=== PATIENT | female | born 1995 | race Caucasian/White ===

== ENCOUNTER 2019-11-03 22:42 | Emergency (ER) | payer MEDICAID ==
[~2019-11-03] VITALS: Ht 149.9 cm; Wt 86.4 kg
[2019-11-03 22:43] VITALS: BP 138/76
[2019-11-03] MEDS ORDERED: IBUP-1022 (22:50)
[2019-11-03] MEDS ORDERED: MEDR150I10 (22:50)
[2019-11-03] MEDS ORDERED: PANT40TA3 (22:50)
[2019-11-03] MEDS ORDERED: RANI15TA (22:50)
[2019-11-03] MEDS ORDERED: CEPH500C (22:50)
[2019-11-03] MEDS ORDERED: ANUSOL HC CREAM 30GM TOP STA (23:41)
[2019-11-03] MEDS ORDERED: ANUS2.5C2 TOP (23:56)
[2019-11-03] MEDS ORDERED: ANUS25SU PR (23:56)
== END 2019-11-04 00:01 | disposition home or self-care (01) ==
LOC: M ED 22:42
DX: K64.8 Other hemorrhoids (principal)

== ENCOUNTER 2022-01-13 19:34 | Emergency (ER) | payer MEDICAID ==
[~2022-01-13] VITALS: Ht 147.3 cm; Wt 90.9 kg
[~2022-01-13 19:34] MED LIST: ANUS2.5C2 TOP; ANUS25SU PR; CEPH500C; IBUP-1022; MEDR150I10; PANT40TA29; RANI15TA
[2022-01-13] MEDS ORDERED: OMEP-341 PO (19:51)
[2022-01-13] MEDS ORDERED: ONDANSETRON 4MG ORAL DISINTEGRATING TAB PO ONE (22:35)
[2022-01-13 23:24] LABS: BASO # 0.1 10^3/uL (0.0-0.2); BASO % 0.5 % (0.0-1.0); EOS # 0.2 10^3/uL (0.0-0.5); HEMATOCRIT 43.3 % (36.0-47.0); HEMOGLOBIN 13.8 g/dl (12.0-15.5); MEAN CORPUSCULAR HEMOGLOBIN 28.5 pg (27.0-33.0); MEAN CORPUSCULAR HGB CONC 31.9 g/dl (32.0-36.5); MEAN CORPUSCULAR VOLUME 89.3 fl (80.0-96.0); MONO # 0.8 10^3/uL (0.0-0.8); MONO % 6.8 % (2.0-8.0); NEUTROPHILS # 6.6 10^3/uL (1.5-8.5); NEUTROPHILS % 56.4 % (36.0-66.0); PLATELET COUNT, AUTOMATED 347 10^3/uL (150-450); RED BLOOD COUNT 4.85 10^6/uL (4.00-5.40); WHITE BLOOD COUNT 11.7 10^3/uL (4.0-10.0)
[2022-01-13 23:49] LABS: HCG, SERUM QUALITATIVE NEGATIVE (NEGATIVE)
[2022-01-13 23:58] LABS: ALBUMIN 4.2 GM/DL (3.2-5.2); ALT/SGPT 29 U/L (12-78); BILIRUBIN,TOTAL 0.2 MG/DL (0.2-1.0); BLOOD UREA NITROGEN 9 MG/DL (7-18); CALCIUM LEVEL 9.9 MG/DL (8.5-10.1); CARBON DIOXIDE LEVEL 25 MEQ/L (21-32); CHLORIDE LEVEL 107 MEQ/L (98-107); CREATININE FOR GFR 0.78 MG/DL (0.55-1.30); GLOMERULAR FILTRATION RATE > 60.0 (>60); GLUCOSE, FASTING 85 MG/DL (70-100); POTASSIUM SERUM 3.8 MEQ/L (3.5-5.1); SODIUM LEVEL 139 MEQ/L (136-145); TOTAL PROTEIN 7.6 GM/DL (6.4-8.2)
[2022-01-14] MEDS ORDERED: ONDA4TAB6 PO
[2022-01-14 00:10] VITALS: BP 128/88
== END 2022-01-14 00:46 | disposition home or self-care (01) ==
LOC: M ED 19:34
DX: N93.8 Other specified abnormal uterine and vaginal bleeding (principal); K21.9 Gastro-esophageal reflux disease without esophagitis; Z79.3 Long term (current) use of hormonal contraceptives

== ENCOUNTER 2022-02-09 18:47 | Emergency (ER) | payer MEDICAID ==
[~2022-02-09] VITALS: Ht 152.4 cm; Wt 88.6 kg
[~2022-02-09 18:47] MED LIST changes: +OMEP-341 PO; +ONDA4TAB6 PO
[2022-02-09 20:20] LABS: RSV AMPLIFICATION NEGATIVE (NEGATIVE)
[2022-02-09 21:17] LABS: BASO % 0.4 % (0.0-1.0); EOS # 0.3 10^3/uL (0.0-0.5); EOS % 2.5 % (0.0-3.0); HEMATOCRIT 44.6 % (36.0-47.0); HEMOGLOBIN 14.1 g/dl (12.0-15.5); LYMPH # 3.7 10^3/uL (1.5-5.0); LYMPH % 34.3 % (24.0-44.0); MEAN CORPUSCULAR HEMOGLOBIN 28.5 pg (27.0-33.0); MEAN CORPUSCULAR HGB CONC 31.6 g/dl (32.0-36.5); MEAN CORPUSCULAR VOLUME 90.3 fl (80.0-96.0); MONO # 0.8 10^3/uL (0.0-0.8); MONO % 7.1 % (2.0-8.0); NEUTROPHILS % 55.6 % (36.0-66.0); PLATELET COUNT, AUTOMATED 350 10^3/uL (150-450); RED BLOOD COUNT 4.94 10^6/uL (4.00-5.40); WHITE BLOOD COUNT 10.8 10^3/uL (4.0-10.0)
[2022-02-09] MEDS ORDERED: ACETAMINOPHEN 500 MG TAB PO ONE (21:25)
[2022-02-09 21:34] LABS: ALBUMIN 3.9 GM/DL (3.2-5.2); ALT/SGPT 35 U/L (12-78); BILIRUBIN,DIRECT < 0.1 MG/DL (0.0-0.2); BILIRUBIN,TOTAL 0.1 MG/DL (0.2-1.0); LIPASE 100 U/L (73-393); TOTAL PROTEIN 7.3 GM/DL (6.4-8.2)
[2022-02-09 23:26] VITALS: BP 136/82
== END 2022-02-09 23:27 | disposition home or self-care (01) ==
LOC: M ED 18:47
DX: N21.0 Calculus in bladder (principal); R10.84 Generalized abdominal pain; R51.9 Headache, unspecified; Z79.899 Other long term (current) drug therapy

== ENCOUNTER 2022-02-12 20:42 | Emergency (ER) | payer MEDICAID ==
[~2022-02-12] VITALS: Ht 152.4 cm; Wt 88.2 kg
[2022-02-12 20:43] VITALS: BP 142/82
== END 2022-02-12 23:25 | disposition left against medical advice (07) ==
LOC: M ED 20:42
DX: Z53.21 Procedure and treatment not carried out due to patient leaving prior to being seen by health care provider (principal)

== ENCOUNTER → 2022-03-02 | Outpatient (REF) | payer MEDICAID | LOC: M LAB REF 19:31 | PROVIDERS: ATTEND Physician Assistant Medical | DX: R53.83 Other fatigue (principal); R50.9 Fever, unspecified; R05.9 Cough, unspecified; J02.9 Acute pharyngitis, unspecified ==

== ENCOUNTER → 2022-03-15 | Outpatient (REF) | payer MEDICAID ==
[2022-03-15 18:24] LABS: APPEARANCE, URINE MANUAL HAZY (CLEAR); BILIRUBIN, URINE MANUAL NEGATIVE (NEGATIVE); BLOOD URINE MANUAL POSITIVE (NEGATIVE); COLOR, URINE MANUAL YELLOW (YELLOW); GLUCOSE, URINE (UA) MANUAL NEGATIVE (NEGATIVE); KETONE, URINE MANUAL NEGATIVE (NEGATIVE); LEUKOCYTE ESTERASE, URINE MAN POSITIVE (NEGATIVE); NITRITE, URINE MANUAL NEGATIVE (NEGATIVE); PROTEIN, URINE MANUAL NEGATIVE (NEGATIVE); SPECIFIC GRAVITY,URINE MANUAL 1.025 (1.002-1.035); UROBILINOGEN, URINE MANUAL NORMAL (NORMAL)
[2022-03-15 18:42] LABS: AMORPHOUS SEDIMENT, URINE LARGE AMOUNT (NEGATIVE); BACTERIA, URINE SMALL AMOUNT; HYALINE CAST, URINE NONE SEEN /lpf (0-1); SQUAMOUS EPITHELIAL CELL URINE SMALL AMOUNT /hpf (SMALL AMT)
== END ==
LOC: M SMT 17:05
PROVIDERS: ATTEND Physician Assistant
DX: R31.9 Hematuria, unspecified (principal)

== ENCOUNTER 2022-09-09 13:43 | Emergency (ER) | payer MEDICAID ==
[~2022-09-09] VITALS: Ht 147.3 cm; Wt 89.9 kg
[2022-09-09] MEDS ORDERED: CETI-24 (14:04)
[2022-09-09] MEDS ORDERED: BENZONATATE 100MG CAPSULE PO ONE (17:55)
[2022-09-09] MEDS ORDERED: LIDOCAINE VISCOUS 2% SOLN 15ML UDC SS ONE (17:55)
[2022-09-09] MEDS ORDERED: ACETAMINOPHEN 500 MG TAB PO ONE (17:55)
[2022-09-09] MEDS ORDERED: BENZ200C70 PO (18:00)
[2022-09-09] MEDS ORDERED: LIDO15SO PO (18:00)
[2022-09-09] MEDS ORDERED: PROA1AER2 INH (18:00)
[2022-09-09 18:09] VITALS: BP 139/87
== END 2022-09-09 18:18 | disposition home or self-care (01) ==
LOC: M ED 13:43 → EDBD 13:43 → M ED 18:18
DX: R07.0 Pain in throat (principal); R05.9 Cough, unspecified; B34.8 Other viral infections of unspecified site; Z79.899 Other long term (current) drug therapy

== ENCOUNTER → 2022-10-15 | Outpatient (REF) | payer MEDICAID ==
[~2022-10-15] MED LIST changes: +BENZ200C70 PO; +CETI-24; +LIDO15SO PO; +PROA1AER2 INH
[2022-10-15 17:33] LABS: BASO # 0.1 10^3/uL (0.0-0.2); BASO % 0.7 % (0.0-1.0); EOS # 0.1 10^3/uL (0.0-0.5); EOS % 1.4 % (0.0-3.0); HEMATOCRIT 43.5 % (36.0-47.0); HEMOGLOBIN 13.8 g/dl (12.0-15.5); LYMPH # 2.9 10^3/uL (1.5-5.0); LYMPH % 37.4 % (24.0-44.0); MEAN CORPUSCULAR HEMOGLOBIN 28.1 pg (27.0-33.0); MEAN CORPUSCULAR HGB CONC 31.7 g/dl (32.0-36.5); MEAN CORPUSCULAR VOLUME 88.6 fl (80.0-96.0); MONO # 0.7 10^3/uL (0.0-0.8); MONO % 8.7 % (2.0-8.0); NEUTROPHILS % 51.7 % (36.0-66.0); PLATELET COUNT, AUTOMATED 329 10^3/uL (150-450); RED BLOOD COUNT 4.91 10^6/uL (4.00-5.40); WHITE BLOOD COUNT 7.7 10^3/uL (4.0-10.0)
[2022-10-15 18:00] LABS: LIPASE 35 U/L (12-53)
[2022-10-15 18:02] LABS: ALBUMIN 3.8 G/DL (3.2-5.2); ALKALINE PHOSPHATASE 85 U/L (46-116); ALT/SGPT 51 U/L (7.0-40); AST/SGOT 19 U/L (<34); BILIRUBIN,TOTAL 0.2 MG/DL (0.3-1.2); BLOOD UREA NITROGEN 11 MG/DL (9-23); CALCIUM LEVEL 9.4 MG/DL (8.5-10.1); CARBON DIOXIDE LEVEL 24 MMOL/L (20-31); CHLORIDE LEVEL 106 MMOL/L (98-107); CREATININE FOR GFR 0.67 MG/DL (0.55-1.30); GLOMERULAR FILTRATION RATE > 60.0 (>60); GLUCOSE, FASTING 81 MG/DL (60-100); POTASSIUM SERUM 3.9 MMOL/L (3.5-5.1); SODIUM LEVEL 140 MMOL/L (136-145); TOTAL PROTEIN 6.7 G/DL (5.7-8.2)
== END ==
LOC: M LAB REF 16:43
PROVIDERS: ATTEND Pediatrics
DX: R10.84 Generalized abdominal pain (principal)

== ENCOUNTER 2022-11-02 19:19 | Emergency (ER) | payer MEDICAID ==
[~2022-11-02] VITALS: Ht 157.5 cm; Wt 86.9 kg
[2022-11-02 19:21] VITALS: BP 124/86; TEMP 99.1; O2SAT 100
[2022-11-02] MEDS ORDERED: AMOX500C PO (19:30)
[2022-11-02] MEDS ORDERED: LIDOCAINE 2% W/ EPINEPHRINE 1.7 ML DENTAL INJ SM ONE (20:05)
[2022-11-02] MEDS ORDERED: BENZOCAINE 20% GEL 9GM TUBE (ANBESOL MAX STRENGTH) TOP ONE (20:05)
[2022-11-02] MEDS ORDERED: AMOX875T2 PO (20:21)
== END 2022-11-02 20:30 | disposition home or self-care (01) ==
LOC: M ED 19:19
DX: K02.9 Dental caries, unspecified (principal); K08.89 Other specified disorders of teeth and supporting structures; Z79.899 Other long term (current) drug therapy

== ENCOUNTER → 2022-11-11 | Outpatient (REF) | payer MEDICAID ==
[~2022-11-11] MED LIST changes: +AMOX500C PO; +AMOX875T2 PO
[2022-11-11 22:27] LABS: APPEARANCE, URINE MANUAL HAZY (CLEAR); COLOR, URINE MANUAL AMBER (YELLOW)
[2022-11-11 22:29] LABS: BILIRUBIN, URINE MANUAL OBSCURED (NEGATIVE); GLUCOSE, URINE (UA) MANUAL NEGATIVE (NEGATIVE); KETONE, URINE MANUAL OBSCURED mg/dL (NEGATIVE); PROTEIN, URINE MANUAL NEGATIVE (NEGATIVE); UROBILINOGEN, URINE MANUAL OBSCURED mg/dl (NORMAL)
[2022-11-11 22:30] LABS: BLOOD URINE MANUAL OBSCURED (NEGATIVE); LEUKOCYTE ESTERASE, URINE MAN OBSCURED (NEGATIVE); NITRITE, URINE MANUAL OBSCURED (NEGATIVE)
[2022-11-11 22:39] LABS: SQUAMOUS EPITHELIAL CELL URINE SMALL AMOUNT /hpf (SMALL AMT)
[2022-11-11 22:41] LABS: BACTERIA, URINE SMALL AMOUNT; HYALINE CAST, URINE NONE SEEN /lpf (0-1)
== END ==
LOC: M LAB REF 21:18
PROVIDERS: ATTEND Physician Assistant Medical
DX: N39.0 Urinary tract infection, site not specified (principal)

== ENCOUNTER 2023-10-13 15:08 | Emergency (ER) | payer MEDICAID ==
[~2023-10-13] VITALS: Ht 157.5 cm; Wt 97.0 kg
[~2023-10-13 15:08] MED LIST changes: -LIDO15SO PO; +LIDO15SO8 PO; -MEDR150I10; +MEDR150I13; -OMEP-341 PO; +OMEP20TA3 PO; +ONDA-282 PO; -ONDA4TAB6 PO
[2023-10-13 17:55] VITALS: BP 118/66; TEMP 97.8; O2SAT 100
[2023-10-13] MEDS: LIDOCAINE 1% MDV 20ML VIAL SC ONE (18:40)
[2023-10-13] MEDS: CEPHALEXIN 500 MG CAP PO ONE (18:53)
[2023-10-13] MEDS: BOOSTRIX VACCINE (TETANUS/DIPHTH/ACEL. PERTUSSIS) 0.5ML SYR IM ONE (18:54)
[2023-10-13] MEDS ORDERED: CEPH500C PO (18:58)
== END 2023-10-13 19:05 | disposition home or self-care (01) ==
LOC: M ED 15:08
DX: S61.212A Laceration without foreign body of right middle finger without damage to nail, initial encounter (principal); W26.8XXA Contact with other sharp object(s), not elsewhere classified, initial encounter; Y92.009 Unspecified place in unspecified non-institutional (private) residence as the place of occurrence of the external cause; Y93.9 Activity, unspecified; Y99.9 Unspecified external cause status; F17.200 Nicotine dependence, unspecified, uncomplicated

== ENCOUNTER 2023-10-20 07:47 | Emergency (ER) | payer MEDICAID ==
[~2023-10-20] VITALS: Ht 157.5 cm; Wt 98.6 kg
[~2023-10-20 07:47] MED LIST changes: +CEPH500C PO
[2023-10-20 09:06] VITALS: BP 117/72; TEMP 97.6; O2SAT 98
== END 2023-10-20 09:27 | disposition home or self-care (01) ==
LOC: M ED 07:47
DX: Z48.02 Encounter for removal of sutures (principal)

== ENCOUNTER 2023-11-01 14:05 | Emergency (ER) | payer MEDICAID ==
[~2023-11-01] VITALS: Ht 157.5 cm; Wt 98.6 kg
[2023-11-01 14:50] LABS: HEMATOCRIT 37.9 % (36.0-47.0); HEMOGLOBIN 11.4 g/dl (12.0-15.5); MEAN CORPUSCULAR HEMOGLOBIN 24.7 pg (27.0-33.0); MEAN CORPUSCULAR HGB CONC 30.1 g/dl (32.0-36.5); PLATELET COUNT, AUTOMATED 323 10^3/uL (150-450); RED BLOOD COUNT 4.62 10^6/uL (4.00-5.40); WHITE BLOOD COUNT 7.6 10^3/uL (4.0-10.0)
[2023-11-01 15:10] LABS: AMPHETAMINES LEVEL URINE NEGATIVE (NEGATIVE); BARBITURATES URINE NEGATIVE (NEGATIVE); BENZODIAZEPINES URINE NEGATIVE (NEGATIVE); COCAINE METABOLITE URINE NEGATIVE (NEGATIVE)
[2023-11-01 15:11] LABS: METHADONE URINE NEGATIVE (NEGATIVE); OPIATES URINE NEGATIVE (NEGATIVE); PHENCYCLIDINE URINE NEGATIVE (NEGATIVE)
[2023-11-01 15:12] LABS: ETHYL ALCOHOL (ETHANOL) < 0.003 % (0.000-0.010)
[2023-11-01 15:14] LABS: ALBUMIN 3.8 G/DL (3.2-5.2); ALKALINE PHOSPHATASE 95 U/L (46-116); ALT/SGPT 24 U/L (7.0-40); AST/SGOT 8 U/L (<34); BILIRUBIN,DIRECT 0.1 MG/DL (<0.4); BILIRUBIN,TOTAL 0.3 MG/DL (0.3-1.2); BLOOD UREA NITROGEN 11 MG/DL (9-23); CALCIUM LEVEL 9.6 MG/DL (8.5-10.1); CARBON DIOXIDE LEVEL 23 MMOL/L (20-31); CHLORIDE LEVEL 108 MMOL/L (98-107); CREATININE FOR GFR 0.67 MG/DL (0.55-1.30); GLOMERULAR FILTRATION RATE > 60.0 (>60); GLUCOSE, FASTING 87 MG/DL (60-100); SALICYLATE LEVEL < 3.0 MG/DL (<30); SODIUM LEVEL 139 MMOL/L (136-145); TOTAL PROTEIN 6.8 G/DL (5.7-8.2)
[2023-11-01 15:17] LABS: THYROID STIMULATING HORMONE 1.474 uIU/ML (0.55-4.78)
[2023-11-01 15:27] LABS: CANNABINOIDS URINE POSITIVE (NEGATIVE)
[2023-11-01 15:28] LABS: HCG, SERUM QUALITATIVE NEGATIVE (NEGATIVE)
[2023-11-01 15:45] VITALS: BP 120/75; TEMP 97.6; O2SAT 100
== END 2023-11-01 15:48 | disposition home or self-care (01) ==
LOC: M ED 14:05
DX: F32.A Depression, unspecified (principal); K21.9 Gastro-esophageal reflux disease without esophagitis

== ENCOUNTER 2024-02-09 15:49 | Emergency (ER) | payer MEDICAID ==
[~2024-02-09] VITALS: Ht 157.5 cm; Wt 97.6 kg
[2024-02-09] MEDS ORDERED: ALBU8.5H INH (19:20)
[2024-02-09] MEDS ORDERED: BENZ200C70 PO (19:20)
[2024-02-09 19:58] VITALS: BP 132/86; TEMP 98.1; O2SAT 100
== END 2024-02-09 20:00 | disposition home or self-care (01) ==
LOC: M ED 15:49
DX: J06.9 Acute upper respiratory infection, unspecified (principal); Z79.899 Other long term (current) drug therapy

== ENCOUNTER → 2024-06-23 | Outpatient (REF) | payer MEDICAID ==
[~2024-06-23] MED LIST changes: +ALBU8.5H INH; -OMEP20TA3 PO; +[UNRECOGNIZED DRUG - CODE] PO
== END ==
LOC: M LAB REF 16:19
PROVIDERS: ATTEND Nurse Practitioner Family
DX: J00 Acute nasopharyngitis [common cold] (principal)

== ENCOUNTER → 2024-06-23 | Outpatient (REF) | payer MEDICAID | LOC: M LAB REF 16:23 | PROVIDERS: ATTEND Nurse Practitioner Family | DX: J02.9 Acute pharyngitis, unspecified (principal) ==

== ENCOUNTER → 2024-07-13 | Outpatient (REF) | payer MEDICAID | LOC: M SFHCDERM 13:16 | PROVIDERS: ATTEND Physician Assistant | DX: D48.9 Neoplasm of uncertain behavior, unspecified (principal) ==

== ENCOUNTER → 2024-07-26 | Outpatient (REF) | payer MEDICAID ==
[2024-07-26 18:51] LABS: APPEARANCE, URINE HAZY (CLEAR); BACTERIA, URINE AUTO NEGATIVE (NEGATIVE); BILIRUBIN, URINE AUTO 1+ (NEGATIVE); BLOOD, URINE BLOOD 2+ (NEGATIVE); COLOR, URINE YELLOW (YELLOW); GLUCOSE, URINE (UA) AUTO NEGATIVE (NEGATIVE); KETONE, URINE AUTO NEGATIVE (NEGATIVE); LEUKOCYTE ESTERASE, URINE AUTO NEGATIVE (NEGATIVE); MUCUS, URINE MODERATE (NEGATIVE); NITRITE, URINE AUTO NEGATIVE (NEGATIVE); PROTEIN, URINE AUTO 1+ mg/dL (NEGATIVE); RBC, URINE AUTO TNTC /HPF (0-3); SPECIFIC GRAVITY URINE AUTO 1.033 (1.002-1.035); SQUAMOUS EPITHELIAL CELL UR AU 1 /HPF (0-6); WBC, URINE AUTO 0 /HPF (0-3)
[2024-07-26 18:52] LABS: URINE PREG TEST NEGATIVE (NEGATIVE)
== END ==
LOC: M LAB REF 17:57
PROVIDERS: ATTEND Physician Assistant Medical
DX: N39.0 Urinary tract infection, site not specified (principal)